=== PATIENT | female | born 1955 | race African-American/Black ===

== ENCOUNTER 2018-11-11 14:48 | Inpatient (IN) | payer MEDICAID ==
[~2018-11-11] VITALS: Ht 170.2 cm; Wt 48.1 kg
[2018-11-11 16:07] LABS: BASOPHILS % 0.5 % (0.0-2.0); EOSINOPHILS % 0.1 % (0.0-5.0); HEMATOCRIT. 32.4 % (36.0-48.0); HEMOGLOBIN. 10.8 g/dL (12.0-16.0); LYMPHOCYTES % 17.5 % (20.0-50.0); MEAN CORPUSCULAR HEMOGLOBIN 30.8 pg (28.0-32.0); MEAN CORPUSCULAR VOLUME 92.5 fL (81.0-99.0); MEAN PLATELET VOLUME 8.7 fl (7.4-10.4); MONOCYTES % 4.8 % (2.0-8.0); NEUTROPHILS % 77.1 % (40.0-76.0); PLATELET 174 x1000/uL (130-400); RED CELL DISTRIBUTION WIDTH 15.8 % (11.6-14.6)
[2018-11-11 16:13] LABS: CHLORIDE 112 mEq/L (98-107)
[2018-11-11 16:55] LABS: CLARITY URINE CLOUDY (CLEAR); COLOR URINE YELLOW (YELLOW); KETONES URINE NEGATIVE (NEGATIVE); LEUKOCYTE ESTERASE URINE TRACE (NEGATIVE); NITRITE URINE POSITIVE (NEGATIVE); OCCULT BLOOD URINE NEGATIVE (NEGATIVE); PH URINE 6.5 (4.5-8.0); PROTEIN URINE TRACE (NEGATIVE); SPECIFIC GRAVITY URINE 1.021 (1.005-1.030); UROBILINOGEN URINE 0.2 E.U./dL (0.2-1.0)
[2018-11-11] MEDS ORDERED: SODIUM CHLORIDE 0.9% 1,000 ML IV ONE ×2 (17:30→18:45)
[2018-11-11] MEDS ORDERED: LORAZEPAM 2MG/ML CPJ IV PRN (20:45)
[2018-11-11] MEDS ORDERED: ONDANSETRON HCL 4MG/2ML INJ IV PRN (20:45)
[2018-11-11] MEDS ORDERED: HYDROCODONE/ACETAMINOPHEN 5/325MG TABLET PO PRN (20:45)
[2018-11-11] MEDS ORDERED: ACETAMINOPHEN 325MG TABLET PO PRN (20:45)
[2018-11-11] MEDS ORDERED: CLONIDINE 0.1MG TABLET PO PRN (20:45)
[2018-11-11] MEDS ORDERED: MAGNESIUM/ALUMINUM HYDROXIDE/SIMETHICONE 30ML UDC PO PRN (20:45)
[2018-11-11] MEDS ORDERED: IPRATROPIUM/ALBUTEROL 0.5-3(2.5)MG/3ML NEB INH PRN (20:45)
[2018-11-11] MEDS ORDERED: DOCUSATE SODIUM 100MG CAPSULE PO PRN (20:45)
[2018-11-11] MEDS ORDERED: CEFTRIAXONE 1 G PREMIX 50 ML IV NR (21:15)
[2018-11-11] MEDS ORDERED: LEVETIRACETAM 500MG PREMIX 100 ML IV SCH (21:15)
[2018-11-11] MEDS ORDERED: ENOXAPARIN 40MG/0.4ML SYR SUBCUT NR (21:15)
[2018-11-11] MEDS ORDERED: LEVETIRACETAM 500 MG in SODIUM CHLORIDE 0.9% 100 ML IV NR (21:30)
[2018-11-11 22:58] LABS: CHLORIDE 115 mEq/L (98-107)
[2018-11-11 23:07] LABS: CREATINE KINASE 70 IU/L (26-192)
[2018-11-11 23:09] LABS: CREATINE KINASE MB FRACTION 1.2 ng/mL (0.5-3.6)
[2018-11-12] VITALS (8 sets, daily range): BP systolic 90–114; BP diastolic 49–61
[2018-11-12 07:12] LABS: BASOPHILS % 0.2 % (0.0-2.0); EOSINOPHILS % 0.1 % (0.0-5.0); HEMATOCRIT. 27.7 % (36.0-48.0); HEMOGLOBIN. 9.4 g/dL (12.0-16.0); LYMPHOCYTES % 17.8 % (20.0-50.0); MEAN CORPUSCULAR HEMOGLOBIN 31.4 pg (28.0-32.0); MEAN PLATELET VOLUME 9.2 fl (7.4-10.4); MONOCYTES % 6.3 % (2.0-8.0); NEUTROPHILS % 75.6 % (40.0-76.0); PLATELET 140 x1000/uL (130-400); RED BLOOD CELL COUNT 2.98 mill/uL (4.2-5.4); RED CELL DISTRIBUTION WIDTH 15.5 % (11.6-14.6)
[2018-11-12 08:19] LABS: CREATINE KINASE MB FRACTION 1.4 ng/mL (0.5-3.6)
[2018-11-12 08:46] LABS: *AMPHETAMINES SCREEN URINE NEGATIVE (NEGATIVE); *BARBITURATES SCREEN URINE NEGATIVE (NEGATIVE); *BENZODIAZEPINES SCREEN URINE PRESUMTIVE POSITIVE (NEGATIVE)
[2018-11-12 08:47] LABS: *COCAINE SCREEN URINE NEGATIVE (NEGATIVE); CANNABINOID URINE SCREEN NEGATIVE (NEGATIVE); METHADONE URINE SCREEN NEGATIVE (NEGATIVE); OPIATES URINE SCREEN NEGATIVE (NEGATIVE); PHENCYCLIDINE URINE SCREEN NEGATIVE (NEGATIVE)
[2018-11-12] MEDS: ENOXAPARIN 40MG/0.4ML SYR SUBCUT SCH (11:15)
[2018-11-12] MEDS: LEVETIRACETAM 500 MG in SODIUM CHLORIDE 0.9% 100 ML IV SCH ×2 (11:15→23:48)
[2018-11-12] MEDS ORDERED: SODIUM CHLORIDE 0.9% 250 ML IV SCH (13:00)
[2018-11-12] MEDS ORDERED: SODIUM CHLORIDE 0.9% 250 ML IV NR (13:03)
[2018-11-12] MEDS: DEXTROSE 5% WATER 1,000 ML IV SCH (14:15)
[2018-11-12] MEDS ORDERED: MAGNESIUM 2 G PREMIX 50 ML IV SCH (14:30)
[2018-11-12] MEDS: MAGNESIUM OXIDE 400MG TABLET PO SCH (15:26)
[2018-11-12] MEDS ORDERED: BACL-141 PO (15:54)
[2018-11-12] MEDS ORDERED: TRAZ-212 PO (15:56)
[2018-11-12] MEDS ORDERED: CHOL100046 MT (16:02)
[2018-11-13] VITALS: BP 107/50
[2018-11-13] MEDS: DEXTROSE 5% WATER 1,000 ML IV SCH ×2 (03:24→16:26)
[2018-11-13 04:00] VITALS: BP 103/59
[2018-11-13 07:47] LABS: BASOPHILS % 0.6 % (0.0-2.0); EOSINOPHILS % 0.6 % (0.0-5.0); HEMATOCRIT. 28.1 % (36.0-48.0); HEMOGLOBIN. 9.6 g/dL (12.0-16.0); MEAN CORPUSCULAR HEMOGLOBIN 31.3 pg (28.0-32.0); MEAN CORPUSCULAR VOLUME 91.7 fL (81.0-99.0); MEAN PLATELET VOLUME 9.1 fl (7.4-10.4); MONOCYTES % 8.3 % (2.0-8.0); NEUTROPHILS % 56.5 % (40.0-76.0); PLATELET 151 x1000/uL (130-400); RED BLOOD CELL COUNT 3.07 mill/uL (4.2-5.4); RED CELL DISTRIBUTION WIDTH 15.5 % (11.6-14.6)
[2018-11-13 08:00] VITALS: BP 101/45
[2018-11-13 08:22] LABS: CHLORIDE 110 mEq/L (98-107)
[2018-11-13] MEDS: ENOXAPARIN 40MG/0.4ML SYR SUBCUT SCH (08:33)
[2018-11-13] MEDS: MAGNESIUM OXIDE 400MG TABLET PO SCH (09:57)
[2018-11-13] MEDS: LEVETIRACETAM 500MG in SODIUM CHLORIDE 0.9% 100ML IV SCH ×2 (10:02→21:24)
[2018-11-13 11:50] VITALS: BP 93/65
[2018-11-13] MEDS: DOCUSATE SODIUM SUGAR FREE 100MG/10ML UDC PO PRN (12:36)
[2018-11-13 16:00] VITALS: BP 99/68
[2018-11-13] MEDS: LACTULOSE 20G/30ML UDC PO PRN (18:28)
[2018-11-13 20:00] VITALS: BP 106/85
[2018-11-13] MEDS ORDERED: CEFTRIAXONE 1 G PREMIX 50 ML IV SCH (22:00)
[2018-11-13] MEDS: CEFTRIAXONE 1 G PREMIX 50 ML IV SCH (23:14)
[2018-11-14] VITALS: BP 119/55
[2018-11-14 04:00] VITALS: BP 115/60
[2018-11-14] MEDS: DEXTROSE 5% WATER 1,000 ML IV SCH ×2 (06:29→21:11)
[2018-11-14 06:31] LABS: BASOPHILS % 0.6 % (0.0-2.0); EOSINOPHILS % 0.7 % (0.0-5.0); HEMATOCRIT. 29.4 % (36.0-48.0); HEMOGLOBIN. 10.1 g/dL (12.0-16.0); LYMPHOCYTES % 33.5 % (20.0-50.0); MEAN CORPUSCULAR HEMOGLOBIN 31.1 pg (28.0-32.0); MEAN CORPUSCULAR VOLUME 90.8 fL (81.0-99.0); MEAN PLATELET VOLUME 8.9 fl (7.4-10.4); MONOCYTES % 8.7 % (2.0-8.0); NEUTROPHILS % 56.5 % (40.0-76.0); PLATELET 157 x1000/uL (130-400); RED BLOOD CELL COUNT 3.24 mill/uL (4.2-5.4); RED CELL DISTRIBUTION WIDTH 15.7 % (11.6-14.6)
[2018-11-14] MEDS: LACTULOSE 20G/30ML UDC PO PRN ×2 (06:38→14:37)
[2018-11-14 07:59] LABS: CHLORIDE 111 mEq/L (98-107)
[2018-11-14 08:00] VITALS: BP 99/49
[2018-11-14] MEDS: ENOXAPARIN 40MG/0.4ML SYR SUBCUT SCH (08:18)
[2018-11-14] MEDS: MAGNESIUM OXIDE 400MG TABLET PO SCH (08:18)
[2018-11-14] MEDS: LEVETIRACETAM 500MG in SODIUM CHLORIDE 0.9% 100ML IV SCH ×2 (08:18→21:15)
[2018-11-14 12:00] VITALS: BP_SYST 94; BP_DIAS 60; BP_DIAS 96
[2018-11-14] MEDS: DOCUSATE SODIUM SUGAR FREE 100MG/10ML UDC PO PRN (14:38)
[2018-11-14 16:00] VITALS: BP 101/59
[2018-11-14 20:00] VITALS: BP 100/69
[2018-11-14] MEDS: CEFTRIAXONE 1 G PREMIX 50 ML IV SCH (21:07)
[2018-11-15] VITALS: BP 100/55
[2018-11-15 04:00] VITALS: BP 103/59
[2018-11-15 06:47] LABS: BASOPHILS % 0.5 % (0.0-2.0); EOSINOPHILS % 0.9 % (0.0-5.0); HEMOGLOBIN. 10.2 g/dL (12.0-16.0); LYMPHOCYTES % 24.1 % (20.0-50.0); MEAN CORPUSCULAR HEMOGLOBIN 30.7 pg (28.0-32.0); MEAN CORPUSCULAR VOLUME 93.3 fL (81.0-99.0); MEAN PLATELET VOLUME 9.5 fl (7.4-10.4); MONOCYTES % 8.9 % (2.0-8.0); NEUTROPHILS % 65.6 % (40.0-76.0); PLATELET 154 x1000/uL (130-400); RED BLOOD CELL COUNT 3.33 mill/uL (4.2-5.4); RED CELL DISTRIBUTION WIDTH 15.2 % (11.6-14.6)
[2018-11-15 07:28] LABS: CHLORIDE 109 mEq/L (98-107)
[2018-11-15] MEDS: LEVETIRACETAM 500MG in SODIUM CHLORIDE 0.9% 100ML IV SCH (09:42)
[2018-11-15] MEDS: ENOXAPARIN 40MG/0.4ML SYR SUBCUT SCH (09:43)
[2018-11-15] MEDS: MAGNESIUM OXIDE 400MG TABLET PO SCH (09:43)
[2018-11-15] MEDS: DEXTROSE 5% WATER 1,000 ML IV SCH (09:43)
[2018-11-15] MEDS ORDERED: KEPP500 MT (14:18)
[2018-11-15] MEDS ORDERED: CEPH-569 MT (14:18)
[2018-11-15] MEDS ORDERED: POLY17PO3 MT (14:18)
[2018-11-15] MEDS ORDERED: DOCU50LI14 PO (14:18)
[2018-11-15] MEDS ORDERED: MAGN200T5 MT (14:19)
[2018-11-15 15:31] VITALS: BP 93/61
== END 2018-11-15 18:15 | disposition home health service (06) | DRG 53 ==
LOC: ER 14:48 → 8WST 19:53 → ENRESERV 21:09
PROVIDERS: ADMIT Internal Medicine; ATTEND Internal Medicine
PROC: 4A00X4Z Measurement of Central Nervous Electrical Activity, External Approach (ICD-10-PCS; principal; 2018-11-15)
DX: G40.409 Other generalized epilepsy and epileptic syndromes, not intractable, without status epilepticus (principal); I95.9 Hypotension, unspecified; E87.8 Other disorders of electrolyte and fluid balance, not elsewhere classified; E46 Unspecified protein-calorie malnutrition; E83.42 Hypomagnesemia; G35 Multiple sclerosis; E86.0 Dehydration; L89.90 Pressure ulcer of unspecified site, unspecified stage; N39.0 Urinary tract infection, site not specified; K59.00 Constipation, unspecified; D64.9 Anemia, unspecified; R00.1 Bradycardia, unspecified; Z68.1 Body mass index [BMI] 19.9 or less, adult; Z74.01 Bed confinement status
CPT/HCPCS: 36415; 70551; 71045; 74018; 80048; 80061; 80305; 82550; 82553; 83735; 84443; 84484; 87186; 92610; 93005; 93306; 93970; 96365; 96372; 99285; A6261; J0696; J1650; J1953; J3475; J7030; J7040; J7050; J7070

== ENCOUNTER 2019-04-08 18:29 | Inpatient (IN) | payer MEDICAID ==
[~2019-04-08] VITALS: Ht 170.2 cm; Wt 36.9 kg
[~2019-04-08 18:29] MED LIST: BACL-141 PO; CEPH-569 MT; CHOL100046 MT; DOCU50LI14 PO; KEPP500 MT; MAGN200T5 MT; POLY17PO3 MT; TRAZ-251 PO
[2019-04-08 19:41] LABS: HEMATOCRIT. 33.5 % (36.0-48.0); MEAN CORPUSCULAR HEMOGLOBIN 30.4 pg (28.0-32.0); MEAN CORPUSCULAR VOLUME 92.4 fL (81.0-99.0); MEAN PLATELET VOLUME 9.2 fl (7.4-10.4); PLATELET 191 x1000/uL (130-400); RED BLOOD CELL COUNT 3.62 mill/uL (4.2-5.4); RED CELL DISTRIBUTION WIDTH 15.6 % (11.6-14.6)
[2019-04-08 19:43] LABS: CHLORIDE 107 mEq/L (98-107)
[2019-04-08 19:48] LABS: ETHANOL BLOOD < 10 mg/dL
[2019-04-08 19:52] LABS: CREATINE KINASE 69 IU/L (26-192)
[2019-04-08 20:25] LABS: PLATELET ESTIMATE NORMAL
[2019-04-08] MEDS ORDERED: SODIUM CHLORIDE 0.9% 1,000 ML IV ONE ×2 (21:30→23:45)
[2019-04-09] MEDS ORDERED: LEVETIRACETAM 500MG PREMIX 100 ML IV ONE
[2019-04-09] MEDS ORDERED: ASPIRIN 300MG SUPP PR ONE
[2019-04-09 01:13] LABS: CLARITY URINE CLEAR (CLEAR); COLOR URINE YELLOW (YELLOW); KETONES URINE NEGATIVE (NEGATIVE); LEUKOCYTE ESTERASE URINE NEGATIVE (NEGATIVE); NITRITE URINE POSITIVE (NEGATIVE); OCCULT BLOOD URINE NEGATIVE (NEGATIVE); PH URINE 7.5 (4.5-8.0); PROTEIN URINE NEGATIVE (NEGATIVE)
[2019-04-09 01:23] LABS: *AMPHETAMINES SCREEN URINE NEGATIVE (NEGATIVE); *BARBITURATES SCREEN URINE NEGATIVE (NEGATIVE); *BENZODIAZEPINES SCREEN URINE NEGATIVE (NEGATIVE); *COCAINE SCREEN URINE NEGATIVE (NEGATIVE)
[2019-04-09 01:24] LABS: CANNABINOID URINE SCREEN NEGATIVE (NEGATIVE); METHADONE URINE SCREEN NEGATIVE (NEGATIVE); OPIATES URINE SCREEN NEGATIVE (NEGATIVE); PHENCYCLIDINE URINE SCREEN NEGATIVE (NEGATIVE)
[2019-04-09 02:00] VITALS: BP 107/59
[2019-04-09] MEDS ORDERED: BACL-141 PO (02:11)
[2019-04-09] MEDS ORDERED: ACETAMINOPHEN 325MG TABLET PO PRN (03:30)
[2019-04-09] MEDS ORDERED: HYDROCODONE/ACETAMINOPHEN 5/325MG TABLET PO PRN (03:30)
[2019-04-09 04:00] VITALS: BP 92/47
[2019-04-09] MEDS ORDERED: TRAZODONE HCL 50MG TABLET PO PRN (04:00)
[2019-04-09] MEDS: SODIUM CHLORIDE 0.9% 1,000 ML IV SCH ×2 (05:04→18:26)
[2019-04-09 08:00] VITALS: BP 87/48
[2019-04-09] MEDS ORDERED: BACLOFEN 10MG TABLET PO PRN (08:00)
[2019-04-09 08:12] LABS: BASOPHILS % 0.4 % (0.0-2.0); EOSINOPHILS % 0.2 % (0.0-5.0); HEMATOCRIT. 29.2 % (36.0-48.0); HEMOGLOBIN. 9.8 g/dL (12.0-16.0); LYMPHOCYTES % 22.4 % (20.0-50.0); MEAN CORPUSCULAR HEMOGLOBIN 31.3 pg (28.0-32.0); MEAN CORPUSCULAR VOLUME 93.5 fL (81.0-99.0); MEAN PLATELET VOLUME 9.8 fl (7.4-10.4); MONOCYTES % 3.9 % (2.0-8.0); NEUTROPHILS % 73.1 % (40.0-76.0); PLATELET 109 x1000/uL (130-400); RED BLOOD CELL COUNT 3.12 mill/uL (4.2-5.4); RED CELL DISTRIBUTION WIDTH 15.9 % (11.6-14.6)
[2019-04-09] MEDS: ASPIRIN 81MG TABLET PO SCH (08:16)
[2019-04-09] MEDS: LEVETIRACETAM 500MG TABLET PO SCH ×2 (08:16→21:21)
[2019-04-09] MEDS: ENOXAPARIN 40MG/0.4ML SYR SUBCUT SCH (08:16)
[2019-04-09 08:20] LABS: CHLORIDE 111 mEq/L (98-107)
[2019-04-09 12:00] VITALS: BP 82/60
[2019-04-09 16:00] VITALS: BP 92/36
[2019-04-09 20:00] VITALS: BP 101/47
[2019-04-09] MEDS ORDERED: LACTULOSE 20G/30ML UDC PO PRN (22:00)
[2019-04-10] VITALS (7 sets, daily range): BP systolic 92–118; BP diastolic 50–70
[2019-04-10] MEDS: SODIUM CHLORIDE 0.9% 1,000 ML IV SCH ×2 (06:14→21:12)
[2019-04-10] MEDS: ENOXAPARIN 40MG/0.4ML SYR SUBCUT SCH (09:00)
[2019-04-10] MEDS: ASPIRIN 81MG TABLET PO SCH (09:38)
[2019-04-10] MEDS: LEVETIRACETAM 500MG TABLET PO SCH ×2 (09:38→21:07)
[2019-04-10] MEDS ORDERED: NA PHOS,M-B/NA PHOS,DI-BA ENEMA 118ML PR NR (15:30)
[2019-05-31] MEDS ORDERED: LACT10SO7 MT (12:08)
[2019-05-31] MEDS ORDERED: POLY17PO3 PO (18:21)
== END 2019-04-10 23:05 | disposition home or self-care (01) | DRG 52 ==
LOC: ER 18:29 → 5WST 23:57 → EDBEDREQ 04-09 00:04 → EDBEDREQTM 04-09 00:04 → ENRESERV 04-09 00:15
PROVIDERS: ADMIT Internal Medicine; ATTEND Internal Medicine
DX: G93.41 Metabolic encephalopathy (principal); E41 Nutritional marasmus; N39.0 Urinary tract infection, site not specified; E86.0 Dehydration; G35 Multiple sclerosis; I10 Essential (primary) hypertension; Z79.899 Other long term (current) drug therapy; Z68.1 Body mass index [BMI] 19.9 or less, adult
CPT/HCPCS: 36415; 71045; 80048; 80305; 80320; 81003; 82140; 82550; 84484; 93005; 96374; 99285; J1650; J1953; J7030; G0480

== ENCOUNTER 2019-05-10 15:44 | Inpatient (IN) | payer MEDICAID ==
[~2019-05-10] VITALS: Ht 152.4 cm; Wt 40.4 kg
[~2019-05-10 15:44] MED LIST changes: -CHOL100046 MT
[2019-05-10] MEDS ORDERED: PIPERACILLIN/TAZ 3.375G PREMIX 50 ML IV ONE (16:15)
[2019-05-10] MEDS ORDERED: SODIUM CHLORIDE 0.9% 1000ML BAG (SEPSIS BOLUS) IV ONE (16:15)
[2019-05-10] MEDS ORDERED: VANCOMYCIN 1 G PREMIX 200 ML IV ONE (16:15)
[2019-05-10 16:59] LABS: HEMOGLOBIN. 12.2 g/dL (12.0-16.0); MEAN CORPUSCULAR HEMOGLOBIN 30.5 pg (28.0-32.0); MEAN CORPUSCULAR VOLUME 95.1 fL (81.0-99.0); MEAN PLATELET VOLUME 9.4 fl (7.4-10.4); PLATELET 226 x1000/uL (130-400); RED CELL DISTRIBUTION WIDTH 15.4 % (11.6-14.6)
[2019-05-10] MEDS ORDERED: ACETAMINOPHEN 650MG SUPP PR ONE (17:00)
[2019-05-10 17:03] LABS: INR 1.1; PROTHROMBIN TIME 10.9 sec (9.6-11.0)
[2019-05-10 17:07] LABS: CHLORIDE 104 mEq/L (98-107)
[2019-05-10 17:24] LABS: PLATELET ESTIMATE NORMAL
[2019-05-10 17:24] LABS: CLARITY URINE CLOUDY (CLEAR); COLOR URINE YELLOW (YELLOW); KETONES URINE NEGATIVE (NEGATIVE); LEUKOCYTE ESTERASE URINE NEGATIVE (NEGATIVE); NITRITE URINE NEGATIVE (NEGATIVE); OCCULT BLOOD URINE NEGATIVE (NEGATIVE); PROTEIN URINE NEGATIVE (NEGATIVE); SPECIFIC GRAVITY URINE 1.017 (1.005-1.030)
[2019-05-10] MEDS ORDERED: PIPERACILLIN/TAZOBACTAM 3.375 G in DEXT 5% WATER 100 ML IV SCH (17:45)
[2019-05-10] MEDS ORDERED: ONDANSETRON HCL 4MG/2ML INJ IV PRN (17:45)
[2019-05-10] MEDS ORDERED: ACETAMINOPHEN 325MG TABLET PO PRN (17:45)
[2019-05-10] MEDS: SODIUM CHLORIDE 0.9% 1,000 ML IV SCH (22:13)
[2019-05-10 23:00] VITALS: BP 93/63
[2019-05-10] MEDS: PIPERACILLIN/TAZOBACTAM 3.375 G in DEXT 5% WATER 100 ML IV SCH (23:44)
[2019-05-11] VITALS (12 sets, daily range): BP systolic 81–104; BP diastolic 52–68
[2019-05-11] MEDS ORDERED: VANCOMYCIN 500 MG PREMIX 100 ML IV SCH (03:00)
[2019-05-11] MEDS: IPRATROPIUM BROMIDE (0.02%) 0.5MG/2.5ML NEB HHN SCH ×2 (04:37→08:07)
[2019-05-11] MEDS: PIPERACILLIN/TAZOBACTAM 3.375 G in DEXT 5% WATER 100 ML IV SCH ×4 (05:08→23:19)
[2019-05-11] MEDS: ACETYLCYSTEINE 100MG/ML 10% VIAL 4ML INH SCH ×3 (08:07→20:03)
[2019-05-11] MEDS: BACLOFEN 10MG TABLET PO SCH ×3 (08:56→17:10)
[2019-05-11] MEDS: LEVETIRACETAM 500MG TABLET GT SCH ×2 (08:56→17:11)
[2019-05-11] MEDS: SODIUM CHLORIDE 0.9% 1,000 ML IV SCH ×2 (08:57→17:11)
[2019-05-11] MEDS ORDERED: ENOXAPARIN 40MG/0.4ML SYR SUBCUT SCH (09:00)
[2019-05-11] MEDS ORDERED: IPRATROPIUM/ALBUTEROL 0.5-3(2.5)MG/3ML NEB HHN PRN (10:45)
[2019-05-11] MEDS: IPRATROPIUM/ALBUTEROL 0.5-3(2.5)MG/3ML NEB HHN SCH ×3 (11:59→20:03)
[2019-05-11] MEDS: VANCOMYCIN 750 MG PREMIX 150 ML IV SCH (13:26)
[2019-05-11 14:11] LABS: BASOPHILS % 0.6 % (0.0-2.0); EOSINOPHILS % 0.1 % (0.0-5.0); HEMATOCRIT. 28.7 % (36.0-48.0); HEMOGLOBIN. 9.5 g/dL (12.0-16.0); LYMPHOCYTES % 16.7 % (20.0-50.0); MEAN CORPUSCULAR HEMOGLOBIN 31.4 pg (28.0-32.0); MEAN CORPUSCULAR VOLUME 94.9 fL (81.0-99.0); MEAN PLATELET VOLUME 9.3 fl (7.4-10.4); MONOCYTES % 3.3 % (2.0-8.0); NEUTROPHILS % 79.3 % (40.0-76.0); PLATELET 169 x1000/uL (130-400); RED BLOOD CELL COUNT 3.03 mill/uL (4.2-5.4); RED CELL DISTRIBUTION WIDTH 15.5 % (11.6-14.6)
[2019-05-11 14:18] LABS: CHLORIDE 108 mEq/L (98-107)
[2019-05-11] MEDS: ZINC SULFATE 220 MG ( 50 ) CAPSULE PO SCH (17:10)
[2019-05-11] MEDS: MULTIVITAMINS,THER W-MINERALS TABLET PO SCH (17:11)
[2019-05-11] MEDS: CALCIUM CARBONATE 1250MG TABLET (500MG ELEMENTAL CALCIUM) PO SCH (17:11)
[2019-05-11] MEDS ORDERED: POTASSIUM CHLORIDE 20MEQ/PACKET PO NR (18:30)
[2019-05-12] VITALS (12 sets, daily range): BP systolic 79–114; BP diastolic 45–58
[2019-05-12] MEDS: IPRATROPIUM/ALBUTEROL 0.5-3(2.5)MG/3ML NEB HHN SCH ×5 (00:23→20:50)
[2019-05-12] MEDS: VANCOMYCIN 750 MG PREMIX 150 ML IV SCH (02:16)
[2019-05-12] MEDS: SODIUM CHLORIDE 0.9% 1,000 ML IV SCH ×3 (05:00→22:46)
[2019-05-12] MEDS: PIPERACILLIN/TAZOBACTAM 3.375 G in DEXT 5% WATER 100 ML IV SCH ×4 (05:00→23:55)
[2019-05-12 06:31] LABS: BASOPHILS % 0.7 % (0.0-2.0); EOSINOPHILS % 0.4 % (0.0-5.0); HEMATOCRIT. 26.4 % (36.0-48.0); HEMOGLOBIN. 8.8 g/dL (12.0-16.0); LYMPHOCYTES % 16.6 % (20.0-50.0); MEAN CORPUSCULAR HEMOGLOBIN 31.5 pg (28.0-32.0); MEAN CORPUSCULAR VOLUME 94.3 fL (81.0-99.0); MEAN PLATELET VOLUME 9.9 fl (7.4-10.4); MONOCYTES % 4.4 % (2.0-8.0); NEUTROPHILS % 77.9 % (40.0-76.0); PLATELET 208 x1000/uL (130-400); RED CELL DISTRIBUTION WIDTH 15.2 % (11.6-14.6)
[2019-05-12] MEDS ORDERED: SODIUM CHLORIDE 0.9% 500 ML IV ONE (08:30)
[2019-05-12 08:43] LABS: CHLORIDE 107 mEq/L (98-107)
[2019-05-12] MEDS: ZINC SULFATE 220 MG ( 50 ) CAPSULE PO SCH (08:49)
[2019-05-12] MEDS: MULTIVITAMINS,THER W-MINERALS TABLET PO SCH (08:50)
[2019-05-12] MEDS: LEVETIRACETAM 500MG TABLET GT SCH ×2 (08:50→19:05)
[2019-05-12] MEDS: BACLOFEN 10MG TABLET PO SCH ×3 (08:50→19:05)
[2019-05-12] MEDS: CALCIUM CARBONATE 1250MG TABLET (500MG ELEMENTAL CALCIUM) PO SCH (08:50)
[2019-05-12] MEDS: ENOXAPARIN 30MG/0.3ML SYR SUBCUT SCH (08:50)
[2019-05-12] MEDS ORDERED: SODIUM CHLORIDE 0.9% 500 ML IV NR ×2 (09:00→11:15)
[2019-05-12] MEDS: ACETYLCYSTEINE 100MG/ML 10% VIAL 4ML INH SCH ×2 (09:02→14:54)
[2019-05-12 11:30] LABS: BG BASE EXCESS 4.5 mmol/L (-2.0-2.0); BG CARBOXYHEMOGLOBIN 0.3 % (0.5-1.5); BG DEOXYHEMOGLOBIN 1.2 % (0.0-5.0); BG FRACTION INSPIRED OXYGEN 32; BG HCO3 ACT 28.7 mmol/L (22.0-26.0); BG METHEMOGLOBIN 0.3 % (0.0-1.5); BG OXYGEN SATURATION 98.8 % (92.0-98.5); BG OXYHEMOGLOBIN 98.2 % (94.0-97.0); BG PCO2 41.1 mmHg (35.0-45.0); BG PH 7.462 (7.350-7.450); BG PO2 147.8 mmHg (75.0-100.0); BG SAMPLE SITE LEFT RADIAL; BG TOTAL HEMOGLOBIN 8.8 g/dL (12.0-18.0); BG VENT MODE NASAL CANNULA
[2019-05-12] MEDS: MIDODRINE HCL 2.5MG TABLET PO SCH ×2 (11:58→20:08)
[2019-05-12] MEDS ORDERED: DIATR MEGLU/DIATRIZOATE SOLN 30ML ONE (12:53)
[2019-05-12 17:32] LABS: VANCOMYCIN TROUGH 9.7 ug/mL (5.0-10.0)
[2019-05-12 17:34] LABS: T4 FREE 1.16 ng/dL (0.76-1.46)
[2019-05-12 17:55] LABS: VITAMIN B12 SERUM 1289 pg/mL (211-911)
[2019-05-12 18:14] LABS: FOLIC ACID (FOLATE) SERUM > 20.00 ng/mL (>5.38)
[2019-05-12] MEDS: VANCOMYCIN 500 MG PREMIX 100 ML IV SCH (21:44)
[2019-05-13] VITALS (16 sets, daily range): BP systolic 90–128; BP diastolic 46–70
[2019-05-13] MEDS: ACETYLCYSTEINE 100MG/ML 10% VIAL 4ML INH SCH ×3 (00:35→09:33)
[2019-05-13] MEDS: IPRATROPIUM/ALBUTEROL 0.5-3(2.5)MG/3ML NEB HHN SCH ×4 (02:20→20:22)
[2019-05-13] MEDS: MIDODRINE HCL 2.5MG TABLET PO SCH ×3 (03:00→20:59)
[2019-05-13] MEDS: VANCOMYCIN 500 MG PREMIX 100 ML IV SCH ×3 (04:24→22:32)
[2019-05-13] MEDS: PIPERACILLIN/TAZOBACTAM 3.375 G in DEXT 5% WATER 100 ML IV SCH ×3 (06:22→17:19)
[2019-05-13 08:07] LABS: BASOPHILS % 0.6 % (0.0-2.0); EOSINOPHILS % 0.5 % (0.0-5.0); HEMOGLOBIN. 8.5 g/dL (12.0-16.0); LYMPHOCYTES % 18.1 % (20.0-50.0); MEAN CORPUSCULAR VOLUME 94.5 fL (81.0-99.0); MEAN PLATELET VOLUME 9.1 fl (7.4-10.4); NEUTROPHILS % 73.8 % (40.0-76.0); PLATELET 227 x1000/uL (130-400); RED BLOOD CELL COUNT 2.75 mill/uL (4.2-5.4); RED CELL DISTRIBUTION WIDTH 15.5 % (11.6-14.6)
[2019-05-13 08:26] LABS: CHLORIDE 109 mEq/L (98-107)
[2019-05-13] MEDS: BACLOFEN 10MG TABLET PO SCH ×3 (09:17→17:19)
[2019-05-13] MEDS: MULTIVITAMINS,THER W-MINERALS TABLET PO SCH (09:17)
[2019-05-13] MEDS: CALCIUM CARBONATE 1250MG TABLET (500MG ELEMENTAL CALCIUM) PO SCH (09:17)
[2019-05-13] MEDS: ENOXAPARIN 30MG/0.3ML SYR SUBCUT SCH (09:17)
[2019-05-13] MEDS: ZINC SULFATE 220 MG ( 50 ) CAPSULE PO SCH (09:17)
[2019-05-13] MEDS: LEVETIRACETAM 500MG TABLET GT SCH ×2 (09:17→17:19)
[2019-05-13] MEDS: SODIUM CHLORIDE 0.9% 1,000 ML IV SCH ×2 (10:31→19:30)
[2019-05-14] VITALS (22 sets, daily range): BP systolic 98–146; BP diastolic 55–72
[2019-05-14] MEDS: IPRATROPIUM/ALBUTEROL 0.5-3(2.5)MG/3ML NEB HHN SCH ×4 (00:35→21:13)
[2019-05-14] MEDS: ACETYLCYSTEINE 100MG/ML 10% VIAL 4ML INH SCH ×3 (00:35→16:43)
[2019-05-14] MEDS: PIPERACILLIN/TAZOBACTAM 3.375 G in DEXT 5% WATER 100 ML IV SCH ×5 (01:25→23:58)
[2019-05-14] MEDS: MIDODRINE HCL 2.5MG TABLET PO SCH ×3 (04:22→20:31)
[2019-05-14] MEDS: SODIUM CHLORIDE 0.9% 1,000 ML IV SCH ×2 (05:30→14:42)
[2019-05-14] MEDS: VANCOMYCIN 500 MG PREMIX 100 ML IV SCH ×2 (07:09→14:41)
[2019-05-14 07:39] LABS: BASOPHILS % 0.6 % (0.0-2.0); EOSINOPHILS % 0.6 % (0.0-5.0); HEMATOCRIT. 25.7 % (36.0-48.0); HEMOGLOBIN. 8.4 g/dL (12.0-16.0); LYMPHOCYTES % 21.9 % (20.0-50.0); MEAN CORPUSCULAR HEMOGLOBIN 30.7 pg (28.0-32.0); MEAN CORPUSCULAR VOLUME 93.7 fL (81.0-99.0); MEAN PLATELET VOLUME 9.1 fl (7.4-10.4); MONOCYTES % 6.9 % (2.0-8.0); PLATELET 244 x1000/uL (130-400); RED BLOOD CELL COUNT 2.75 mill/uL (4.2-5.4); RED CELL DISTRIBUTION WIDTH 15.3 % (11.6-14.6)
[2019-05-14 07:51] LABS: CHLORIDE 110 mEq/L (98-107)
[2019-05-14] MEDS: LEVETIRACETAM 500MG TABLET GT SCH ×2 (09:25→17:41)
[2019-05-14] MEDS: ZINC SULFATE 220 MG ( 50 ) CAPSULE PO SCH (09:25)
[2019-05-14] MEDS: MULTIVITAMINS,THER W-MINERALS TABLET PO SCH (09:25)
[2019-05-14] MEDS: ENOXAPARIN 30MG/0.3ML SYR SUBCUT SCH (09:25)
[2019-05-14] MEDS: BACLOFEN 10MG TABLET PO SCH ×3 (09:32→17:41)
[2019-05-14] MEDS: CALCIUM CARBONATE 1250MG TABLET (500MG ELEMENTAL CALCIUM) PO SCH (09:32)
[2019-05-14] MEDS ORDERED: LACTULOSE 20G/30ML UDC PO NR (15:00)
[2019-05-15] VITALS (14 sets, daily range): BP systolic 100–115; BP diastolic 47–63
[2019-05-15] MEDS: IPRATROPIUM/ALBUTEROL 0.5-3(2.5)MG/3ML NEB HHN SCH ×4 (02:18→20:36)
[2019-05-15] MEDS: ACETYLCYSTEINE 100MG/ML 10% VIAL 4ML INH SCH ×3 (02:18→14:42)
[2019-05-15] MEDS: SODIUM CHLORIDE 0.9% 1,000 ML IV SCH ×2 (03:11→12:57)
[2019-05-15] MEDS: MIDODRINE HCL 2.5MG TABLET PO SCH ×3 (03:19→20:31)
[2019-05-15] MEDS: PIPERACILLIN/TAZOBACTAM 3.375 G in DEXT 5% WATER 100 ML IV SCH ×3 (06:02→18:04)
[2019-05-15] MEDS: MULTIVITAMINS,THER W-MINERALS TABLET PO SCH (09:40)
[2019-05-15] MEDS: BACLOFEN 10MG TABLET PO SCH ×3 (09:40→18:04)
[2019-05-15] MEDS: ENOXAPARIN 30MG/0.3ML SYR SUBCUT SCH (09:40)
[2019-05-15] MEDS: CALCIUM CARBONATE 1250MG TABLET (500MG ELEMENTAL CALCIUM) PO SCH (09:40)
[2019-05-15] MEDS: ZINC SULFATE 220 MG ( 50 ) CAPSULE PO SCH (09:40)
[2019-05-15] MEDS: LEVETIRACETAM 500MG TABLET GT SCH ×2 (09:40→18:04)
[2019-05-15] MEDS ORDERED: BISACODYL 10MG SUPP PR NR (16:45)
[2019-05-31] MEDS ORDERED: LACT10SO7 MT (12:08)
[2019-05-31] MEDS ORDERED: POLY17PO3 PO (18:21)
== END 2019-05-15 22:34 | disposition hospice, home (50) | DRG 720 ==
LOC: ER 15:44 → 5EST 17:27 → EDBEDREQ 18:10 → EDBEDREQTM 18:10 → ENRESERV 20:30 → 5EST 21:55
PROVIDERS: ADMIT Internal Medicine; ATTEND Internal Medicine
PROC: 4A10X4Z Monitoring of Central Nervous Electrical Activity, External Approach (ICD-10-PCS; principal; 2019-05-12)
DX: A41.50 Gram-negative sepsis, unspecified (principal); J96.00 Acute respiratory failure, unspecified whether with hypoxia or hypercapnia; R65.21 Severe sepsis with septic shock; G92 Toxic encephalopathy; L89.150 Pressure ulcer of sacral region, unstageable; J18.1 Lobar pneumonia, unspecified organism; E44.0 Moderate protein-calorie malnutrition; L89.890 Pressure ulcer of other site, unstageable; K94.23 Gastrostomy malfunction; R13.10 Dysphagia, unspecified; L89.320 Pressure ulcer of left buttock, unstageable; R91.1 Solitary pulmonary nodule; L89.310 Pressure ulcer of right buttock, unstageable; G35 Multiple sclerosis; N39.0 Urinary tract infection, site not specified; G40.909 Epilepsy, unspecified, not intractable, without status epilepticus; B96.89 Other specified bacterial agents as the cause of diseases classified elsewhere; D64.9 Anemia, unspecified; I10 Essential (primary) hypertension; Y83.3 Surgical operation with formation of external stoma as the cause of abnormal reaction of the patient, or of later complication, without mention of misadventure at the time of the procedure; Y92.89 Other specified places as the place of occurrence of the external cause; Z74.01 Bed confinement status; Z68.1 Body mass index [BMI] 19.9 or less, adult
CPT/HCPCS: 36415; 36600; 70551; 71045; 74018; 80048; 80202; 81003; 82140; 82375; 82607; 82746; 82805; 83036; 83605; 84134; 84145; 84439; 84443; 84481; 84484; 87077; 87186; 93005; 93970; 93971; 94640; 97162; 97166; 99291; A6261; J1650; J2543; J3370; J7030; J7040; J7060; J7608; J7620; Q9963